=== PATIENT | female | born 1950 | race Caucasian/White ===

== ENCOUNTER 2018-04-08 08:06 | Inpatient (IN) | payer OTHER, MEDICAID ==
[2018-04-08] MEDS ORDERED: methylPREDNISolone SOD SUCC 125 MG/2 ML VIAL IVP ONE (09:14)
[2018-04-08] MEDS ORDERED: IPRATROPIUM/ALBUTEROL 3 ML DEYVIAL IH ONE (09:14)
--- NOTE | 2018-04-08 09:14 | EDPHY ---
H & P Stated Complaint: SOB/fatigue Time Seen by Provider: 04/08/18 08:35 HPI/ROS: CHIEF COMPLAINT: Shortness of breath HISTORY OF PRESENT ILLNESS: 68-year-old female presents with shortness of breath. Onset of shortness of breath and wheezing 2 days ago. Using albuterol inhaler with minimal relief. Associated with a moist cough. No known fever. Onset of diarrhea 2 days ago, now resolved. Nausea yesterday, result today. No prior history of asthma or COPD. Prior smoker. REVIEW OF SYSTEMS: complete 10 point ROS negative except at noted in the HPI - Personal History Current Tetanus/Diphtheria Vaccine: Unsure Tetanus Vaccine Date: last 5 years - Medical/Surgical History Hx Asthma: Yes Hx Chronic Respiratory Disease: No Hx Diabetes: No Hx Cardiac Disease: No Hx Renal Disease: Yes Hx Cirrhosis: No Hx Alcoholism: No Hx HIV/AIDS: No Hx Splenectomy or Spleen Trauma: No Other PMH: medical- psoriasis, depression, anxiety, panic attacks, ulcers. surgery- L humerous, B hip replaced, R nephrectomy, abd surgery, web marketing strategist surgery, c- section - Social History Smoking Status: Former smoker Alcohol Use: Sober Drug Use: None - Physical Exam Exam: General Appearance: Alert, pleasant Eyes: Pupils equal and round, no conjunctival pallor ENT, Mouth: Mucous membranes moist Neck: Normal inspection Respiratory: Diffuse expiratory wheezing Cardiovascular: Regular rate and rhythm Gastrointestinal: Abdomen is soft and nontender Neurological: A&O, nonfocal exam Skin: Warm and dry, no rash Extremities: Nontender, no pedal edema Psychiatric: Mood and affect normal Constitutional: Initial Vital Signs Temperature (C) 37.2 C 04/08/18 08:09 Heart Rate 95 04/08/18 08:09 Respiratory Rate 17 04/08/18 08:09 Blood Pressure 168/107 H 04/08/18 08:09 O2 Sat (%) 88 L 04/08/18 08:09 O2 Delivery Mode Humidified O2 (L/minute) 2 Allergies/Adverse Reactions: latex Allergy (Verified 01/21/16 17:53) morphine [Morphine] Allergy (Verified 01/21/16 17:53) Penicillins Allergy (Verified 01/21/16 17:53) Sulfa (Sulfonamide Antibiotics) Allergy (Verified 01/21/16 17:53) tetracycline [Tetracycline] Allergy (Verified 01/21/16 17:53) zinc Allergy (Verified 04/08/18 08:15) Home Medications: Medication Instructions Recorded Albuterol [Proventil Inhaler HFA 1 - 2 puffs IH Q4H PRN 04/08/18 (*)] Aspirin [Aspirin 325 mg (*)] 325 mg PO QID PRN 04/08/18 Ferrous Sulfate [Ferrous Sulf 325 325 mg PO DAILY 04/08/18 MG (*)] amLODIPine BESYLATE [Norvasc 10 mg 10 mg PO DAILY 04/08/18 (*)] guaiFENesin [Mucinex 600 MG (*)] 600 mg PO BID 04/08/18 traZODone [traZODONE 50MG (*)] 50 mg PO HS PRN 04/08/18 Medical Decision Making - Diagnostics Imaging Results: Chest X-Ray 04/08/18 08:35 Impression: No acute abnormality. Imaging: I viewed and interpreted images myself ED Course/Re-evaluation: This patient presents with diffuse bronchospasm and hypoxia. Oxygen by nasal cannula applied. Chest x-ray reveals no evidence of pneumonia. A DuoNeb and Solu-Medrol 125 mg IV given. 10am-feels much better after DuoNeb. Continues to have expiratory wheezing. Albuterol neb given. K+ 5.9, specimen hemolyzed. Chem 7 repeated and potassium is normal. 10:45am-continued expiratory wheezing after albuterol neb. Oxygen saturation 88 % on room air. Will admit for bronchospasm and hypoxia. The hospitalist service was consulted for admission. Differential Diagnosis: Differential diagnosis includes though it is not limited to pneumonia, pneumothorax, pulmonary embolism, aortic dissection, pericarditis, acute coronary syndrome. - Data Points Laboratory Results: Laboratory Results 04/08/18 09:40 04/08/18 10:35 Microbiology Results: MICROBIOLOGY 04/08/18 10:00 Blood Blood Culture - Preliminary 04/08/18 09:40 Blood Blood Culture - Preliminary Medications Given: Acetaminophen (Tylenol) 650 mg PO Q4HRS PRN PRN Reason: Pain, Mild/Fever, Can Take PO Stop: 10/05/18 11:53 Last Admin: 04/09/18 05:19 Dose: 650 mg Albuterol/Ipratropium (Duoneb) 3 ml IH QID [facility] Stop: 10/05/18 11:59 Last Admin: 04/10/18 16:27 Dose: 3 ml Amlodipine Besylate (Norvasc) 10 mg PO DAILY [facility] Stop: 10/06/18 08:59 Last Admin: 04/10/18 09:28 Dose: 10 mg Benzonatate (Tessalon Pearles) 200 mg PO TID [facility] Stop: 10/06/18 15:59 Last Admin: 04/10/18 17:22 Dose: Not Given Enoxaparin Sodium (Lovenox) 40 mg SC DAILY [facility] Stop: 10/06/18 08:59 Last Admin: 04/10/18 09:28 Dose: 40 mg Ferrous Sulfate (Ferrous Sulfate) 325 mg PO DAILY [facility] Stop: 10/06/18 08:59 Last Admin: 04/10/18 09:27 Dose: 325 mg Guaifenesin (Mucinex) 600 mg PO BID [facility] Stop: 10/05/18 20:59 Last Admin: 04/10/18 20:16 Dose: 600 mg Levofloxacin (Levaquin) 750 mg PO DAILY AT 10AM [facility] PRN Reason: Protocol Stop: 05/10/18 09:59 Last Admin: 04/10/18 12:30 Dose: 750 mg Lorazepam (Ativan) 0.5 mg PO Q6 PRN PRN Reason: Anxiety, Able to Take PO Stop: 10/07/18 09:36 Last Admin: 04/10/18 12:35 Dose: 0.5 mg Melatonin (Melatonin) 3 mg PO HS [facility] Stop: 10/05/18 20:59 Last Admin: 04/10/18 20:16 Dose: 3 mg Montelukast Sodium (Singulair) 10 mg PO DAILY@1800 [facility] Stop: 10/07/18 17:59 Last Admin: 04/10/18 18:28 Dose: 10 mg Prednisone (Prednisone) 60 mg PO DAILY [facility] Stop: 10/06/18 08:59 Last Admin: 04/10/18 09:28 Dose: 60 mg Fluticasone/Salmeterol (Advair) 1 puffs IH BID [facility] Stop: 10/06/18 12:59 Last Admin: 04/10/18 09:30 Dose: 1 puffs Throat Lozenges (Cepacol Lozenge) 1 ea PO PRN PRN PRN Reason: Cough, Mild Stop: 10/06/18 17:30 Last Admin: 04/10/18 16:27 Dose: 1 ea Discontinued Medications Albuterol (Proventil Neb) 3 ml IH EDNOW ONE Stop: 04/08/18 10:13 Last Admin: 04/08/18 10:25 Dose: 3 ml Albuterol (Proventil Neb) 3 ml IH EDNOW ONE Stop: 04/08/18 10:53 Last Admin: 04/08/18 11:04 Dose: 3 ml Albuterol/Ipratropium (Duoneb) 3 ml IH EDNOW ONE Stop: 04/08/18 09:15 Last Admin: 04/08/18 09:28 Dose: 3 ml Lorazepam (Ativan Injection) 0.5 mg IVP Q4HRS PRN PRN Reason: Anxiety Stop: 10/05/18 20:33 Last Admin: 04/10/18 07:41 Dose: 0.5 mg Methylprednisolone Sodium Succinate (Solu-Medrol) 125 mg IVP EDNOW ONE Stop: 04/08/18 09:15 Last Admin: 04/08/18 09:40 Dose: 125 mg Departure - Departure Disposition: [facility] Acute Clinical Impression: Chronic obstructive pulmonary disease with acute exacerbation Condition: Fair
[2018-04-08 09:51] LABS: PLATELET COUNT 384 10^3/uL (150-400)
[2018-04-08] MEDS ORDERED: ALBUTEROL 3 ML DEYVIAL IH ONE ×2 (10:12→10:52)
[2018-04-08] MEDS ORDERED: ACETAMINOPHEN 325 MG TAB PO PRN (11:54)
[2018-04-08] MEDS ORDERED: ALBUTEROL 3 ML DEYVIAL IH PRN (11:54)
[2018-04-08] MEDS ORDERED: ONDANSETRON DISINTEGRATING 4 MG TAB PO PRN (11:54)
[2018-04-08] MEDS ORDERED: ONDANSETRON 4 MG/2 ML VIAL IVP PRN (11:54)
[2018-04-08] MEDS ORDERED: ASPIRIN 325 MG TAB PO PRN (11:56)
[2018-04-08] MEDS ORDERED: traZODone 50 MG TAB PO PRN (11:56)
[2018-04-08] MEDS: IPRATROPIUM/ALBUTEROL 3 ML DEYVIAL IH SCH ×3 (13:41→20:40)
--- NOTE | 2018-04-08 15:06 | GHP ---
DATE OF ADMISSION: 04/08/2018 CHIEF COMPLAINT: Shortness of breath. HISTORY OF PRESENT ILLNESS: The patient is a 68-year-old female who presented to the emergency room with complaints of shortness of breath. She states that her onset of shortness of breath and wheezin g began approximately 2 days ago and has progressively become worse. She has not been exposed to any ill people that she is aware of. She has been using her albuterol inhaler at home with minimal reli ef. Her symptoms are associated with a moist cough. She has had no fever, no dyspnea, no chest pain , no headache. She did have diarrhea approximately 2 days ago; however, this has resolved as well. She has had no vomiting or other complaints at this time. REVIEW OF SYSTEMS: A comprehensive 10-point review of systems is negative other than noted in HPI. PAST MEDICAL HISTORY: Asthma, psoriasis, depression, anxiety, panic attacks, ulcers. PAST SURGICAL HISTORY: Bilateral hip replacement, left humerus surgery, right nephrectomy. SOCIAL HISTORY: The patient lives independently. She is a former smoker. She denies any alcohol or current tobacco use. ALLERGIES: Latex, morphine, penicillin, sulfa, tetracycline, zinc. PHYSICAL EXAM: GENERAL: The patient is alert, in no acute distress, oriented. VITAL SIGNS: Afebri le at 37, pulse is 93, respiratory rate 16, blood pressure is 132/78. She is saturating 91% on 1.5 L . HEENT: Normocephalic, atraumatic. Mucosal membranes are moist. Pupils equal, round, reactive to light. NECK: Supple. No lymphadenopathy or JVD noted. RESPIRATORY: Diffuse expiratory wheezing, decreased in the bases bilaterally. CARDIOVASCULAR: Regular rate and rhythm. GASTROINTESTINAL: A bdomen: Bowel sounds are positive. Soft and nontender. There is no guarding or rigidity noted. NE UROLOGICAL: The patient is alert and oriented. No focal abnormalities identified. SKIN: Warm and dry without rashes or lesions. EXTREMITIES: Within normal limits. There is no clubbing or cyanosis appreciated. MEDICATIONS PRIOR TO ADMISSION: Aspirin, Benadryl, Ativan, Celexa, Valium. FAMILY HISTORY: Reviewed and noncontributory. IMAGING: Chest x-ray shows no acute abnormality, personally reviewed and interpreted. LABORATORY DATA: CBC is benign, as well as a metabolic panel. ASSESSMENT AND PLAN: The patient is a 68-year-old female who presented to the emergency room with co mplaints of shortness of breath. She is being admitted to the hospital for: 1. Chronic obstructive pulmonary disease exacerbation with a history of asthma. She received steroi ds in the emergency room. She is significantly improved. She does continue to have some expiratory wheezing. I do not know any acute infectious process that is bacterial at this time. She will not r eceive any antibiotic therapy. Respiratory PCR panel is pending prior to this dictation and will be followed during her hospital course. 2. Acute hypoxemic respiratory failure. This is in the setting of chronic obstructive pulmonary dis ease exacerbation. She is requiring 1.5 L. She does not wear oxygen at baseline. We will continue DuoNebs and steroid therapy. 3. History of anxiety with depression. We will continue her previously prescribed home medications. DISPOSITION: The patient will be admitted under observation status. I anticipate that it will take less than 48 hours for her to be feeling well and discharged from the hospital. If not, her admissio n order can be adjusted as needed. /[id number]/MODL
[2018-04-08] MEDS: guaiFENesin 600 MG TAB.ER PO SCH (21:10)
[2018-04-08] MEDS: MELATONIN 3 MG TAB PO SCH (21:11)
[2018-04-08] MEDS: LORazepam 2 MG/ML INJ IVP PRN (21:11)
[2018-04-09] MEDS: LORazepam 2 MG/ML INJ IVP PRN ×5 (01:11→20:29)
[2018-04-09] MEDS: IPRATROPIUM/ALBUTEROL 3 ML DEYVIAL IH SCH ×4 (05:48→20:39)
[2018-04-09] MEDS: FERROUS SULFATE 325 MG TAB PO SCH (09:06)
[2018-04-09] MEDS: guaiFENesin 600 MG TAB.ER PO SCH ×2 (09:06→20:21)
[2018-04-09] MEDS: ENOXAPARIN 40 MG/0.4 ML SYR SC SCH (09:07)
[2018-04-09] MEDS: predniSONE 20 MG TAB PO SCH (09:07)
--- NOTE | 2018-04-09 11:25 | ASMTCMCOM ---
CM Note CM Note Notes: CM met with Pt and her son and reviewed chart for D/C planning. Pt is a 68 y/o female with an acute onset of SOB; she also c/o on-going dizziness and a recent bout with diarrhea. Per Pt and son, Pt lives alone with much attention/help/supervision from her son and daughter; they both live near her. Pt cooks her own meals. Her son has purchased a walk-in tub and equipped it with bars, but Pt "sink bathes" due to dizziness which she is worried could lead to falls. She has not fallen since she began using a walker. Pt's children keep the home clean and do her laundry. Pt has had PT in the home before and found it helpful. Pt and son given resource for low-income non-medical home services, [facility]. PT eval has been ordered. CM to follow. D/C Plan: TBD Date Signed: 04/09/2018 11:24 AM Electronically Signed By:Whitney Hernandez
--- NOTE | 2018-04-09 12:47 | HOSPPROG ---
Hospitalist Progress Note Assessment/Plan: DIAGNOSES: * acute hypoxemic respiratory failure * acute COPD/asthma exacerbation * persistent cough with free can't prolonged coughing spells aggravating dyspnea , sleeplessness, weakness * deconditioning * uncontrolled hypertension, appears resolved * hyperkalemia resolved; cause of this is uncertain particularly as she had been having diarrhea at home * acute diarrheal illness at home, resolved here PLANS: * Continue current bronchodilator nebs, prednisone * Add Advair * Continue Mucinex, add Tessalon Perles * Increase activity as she is able * Follow blood pressures SUBJECTIVE: Complains of ongoing cough, dyspnea, weakness OBJECTIVE Vitals reviewed: Blood pressure is notably better otherwise stable; respirations not rapid but do look mildly labored still at rest Skull Grinder, my review: Exam: alert oriented skin warm dry color ok resps mildly labored lungs diffuse rhonchorous breath sounds with overall diminished air movement heart regular abd soft nondistended nontender, bowel sounds present limbs warm, no edema iv site ok Lab data: Potassium now 4.3 good renal function I did review her x-ray images from yesterday agree that they do not show any infiltrate or heart failure Objective: Vital Signs Temp Pulse Resp BP Pulse Ox 36.7 C 109 H 19 124/85 H 93 04/09/18 07:26 04/09/18 12:00 04/09/18 12:00 04/09/18 12:00 04/09/18 12:00 04/08/18 04/09/18 04/10/18 06:59 06:59 06:59 Intake Total 700 Output Total 1 Balance 700 -1 ICD10 Worksheet Patient Problems: Problems Problem Status Onset Chronic obstructive pulmonary disease with acute exacerbation Acute
[2018-04-09] MEDS: FLUTICASONE/SALMETER 250/50MCG DISKUS IH SCH ×2 (14:29→20:45)
--- NOTE | 2018-04-09 16:15 | ASMTCMCOM ---
CM Note CM Note Notes: Spoke w/pt regarding homecare, PT recommends home PT. Pt is agreeable and would like referral sent to [facility]. DC date uncertain. DC Plan: Home Care Date Signed: 04/09/2018 04:09 PM Electronically Signed By:Tresa Schwab RN
[2018-04-09] MEDS: CEPACOL LOZENGE PO PRN (18:04)
[2018-04-09] MEDS: BENZONATATE 100 MG CAP PO SCH ×2 (19:16→20:22)
[2018-04-09] MEDS: MELATONIN 3 MG TAB PO SCH (20:21)
[2018-04-10] MEDS: LORazepam 2 MG/ML INJ IVP PRN ×2 (01:41→07:41)
[2018-04-10] MEDS: IPRATROPIUM/ALBUTEROL 3 ML DEYVIAL IH SCH ×4 (06:20→21:25)
[2018-04-10] MEDS: CEPACOL LOZENGE PO PRN ×2 (07:42→16:27)
[2018-04-10] MEDS: FERROUS SULFATE 325 MG TAB PO SCH (09:27)
[2018-04-10] MEDS: predniSONE 20 MG TAB PO SCH (09:28)
[2018-04-10] MEDS: ENOXAPARIN 40 MG/0.4 ML SYR SC SCH (09:28)
[2018-04-10] MEDS: guaiFENesin 600 MG TAB.ER PO SCH ×2 (09:28→20:16)
[2018-04-10] MEDS: BENZONATATE 100 MG CAP PO SCH ×3 (09:30→21:31)
[2018-04-10] MEDS: FLUTICASONE/SALMETER 250/50MCG DISKUS IH SCH ×2 (09:30→21:26)
--- NOTE | 2018-04-10 09:46 | HOSPPROG ---
Hospitalist Progress Note Assessment/Plan: 68-year-old woman with a history of tobacco use is admitted with increased shortness of breath.. She is diagnosed with acute COPD exacerbation and is currently on prednisone and DuoNeb nebs. Given ongoing cough and shortness of breath will add an antibiotic for possible pneumonia, I also suspect she does have a COPD and was with worsening cough this is indicated # acute COPD exacerbation with acute hypoxemic respiratory failure, minimal improvement over the past 2 days with steroids and duo nebs. Possible bronchitis symptomatically. * Add antibiotic * Continue prednisone and nebulizers * Add Singulair * Check magnesium and if low will give IV magnesium * Follow oxygen saturations. # anxiety: The significant component of anxiety worsening her cough, will continue Ativan however will change to p.o. # hypertension, continue to monitor and treat as needed may need IV antihypertensives. # history of hyperkalemia on admission will repeat # DVT prophylaxis on Lovenox Subjective: Patient new to me and chart reviewed,. Complains of persistent cough. Blood pressure tends to increase during her coughing fits. I suspect that is what's going on now. No chest pain Objective: Vital Signs Temp Pulse Resp BP Pulse Ox 36.1 C 140 H 18 130/75 H 89 L 04/10/18 07:15 04/10/18 07:15 04/10/18 07:15 04/10/18 09:31 04/10/18 07:15 04/09/18 04/10/18 04/11/18 05:59 05:59 05:59 Intake Total 700 700 Output Total 1 Balance 700 699 - Physical Exam Constitutional: chronically ill appearing, uncomfortable Eyes: PERRL, anicteric sclera, EOMI Ears, Nose, Mouth, Throat: moist mucous membranes, hearing normal Cardiovascular: tachycardia Respiratory: bronchial breath sounds, respiratory distress, No expiratory wheeze , No inspiratory crackles Gastrointestinal: normoactive bowel sounds, soft, non-tender abdomen Genitourinary: no bladder fullness Skin: warm Neurologic: AAOx3 Psychiatric: interacting appropriately ICD10 Worksheet Patient Problems: Problems Problem Status Onset Chronic obstructive pulmonary disease with acute exacerbation Acute
--- NOTE | 2018-04-10 11:34 | PDMN ---
Medical Necessity Medical necessity: [facility] [place] M100 COPD: 68 y/o w/ SOB, dx w/ COPD exacerbation w/ hx of asthma requiring oxygen to maintain sats >90%, steroids and nebs. Hypertensive 180s/100s. During course of hospitalization she has ongoing cough and SOB, IV antibx to be added for possible pneumonia. Change to IP status @ 1805 per MD "Due to ongoing significant dyspnea with impaired ambulation, hypoxemia, will need to change her to inpatient for ongoing care here in hospital."
[2018-04-10] MEDS: LORazepam 0.5 MG TAB PO PRN ×2 (12:35→21:46)
[2018-04-10] MEDS ORDERED: MONTELUKAST SODIUM 10 MG TAB PO SCH (18:00)
[2018-04-10] MEDS: MELATONIN 3 MG TAB PO SCH (20:16)
[2018-04-11] MEDS: CEPACOL LOZENGE PO PRN ×2 (01:38→06:00)
[2018-04-11] MEDS: IPRATROPIUM/ALBUTEROL 3 ML DEYVIAL IH SCH ×2 (06:23→10:40)
[2018-04-11] MEDS: LORazepam 0.5 MG TAB PO PRN (06:41)
[2018-04-11] MEDS ORDERED: MAGNESIUM SULF 2 GM/WATER 50 ML IV ONE (08:06)
[2018-04-11] MEDS: ENOXAPARIN 40 MG/0.4 ML SYR SC SCH (08:26)
[2018-04-11] MEDS: guaiFENesin 600 MG TAB.ER PO SCH (08:27)
[2018-04-11] MEDS: predniSONE 20 MG TAB PO SCH (08:27)
[2018-04-11] MEDS: BENZONATATE 100 MG CAP PO SCH (08:27)
[2018-04-11] MEDS: FERROUS SULFATE 325 MG TAB PO SCH (08:28)
[2018-04-11] MEDS: FLUTICASONE/SALMETER 250/50MCG DISKUS IH SCH (10:39)
[2018-04-11 11:11] VITALS: BP 153/82
--- NOTE | 2018-04-11 12:34 | ASMTLACE ---
[facility] Length of stay for Answers: 1 day current admission Acuity / Level of Answers: No Care: Did the patient have an inpatient admission? Comorbidities - select Answers: Other Notes: Asthma all that apply # of Emergency department Answers: 1-2 visits in the last 6 months Social determinants Answers: Mental health diagnosis (anxiety, depression, pers onality disorders, etc.) Score: 6 Date Signed: 04/11/2018 12:33 PM Electronically Signed By:Sudha Basurto RN
--- NOTE | 2018-04-11 13:42 | ASMTCMCOM ---
CM Note CM Note Notes: Reviewed chart, spoke with СВЕТЛАНА Gonzalez regarding discharge plan of care, pt's progress. Per Lisa, pt to discharge home today. Met with pt and pt's dghtr to discuss potential needs. Pt interested in homecare for housekeeping help and PT, but not agreeable to homebound requirements. Education provided on homecare services, pt requesting outpt physical therapy. Rx for therapy obtained from Dr. Rodriguez, given to pt. Pt to discharge home independently with family support. IM signed, placed in chart. Pt to follow up as directed. CM available for any further issues or concerns. Discharge Plan: Home independently with family support Date Signed: 04/11/2018 01:41 PM Electronically Signed By:Sudha Basurto RN
--- NOTE | 2018-04-11 13:53 | ASDISCHSUM ---
Discharge Information Plan Status:Home with No Needs Medically Cleared to Leave:04/11/2018 Discharge Date:04/11/2018 12:38 PM CM D/C Disposition:Home, Routine, Self-Care ADT D/C Disposition:[id number] Projected Discharge Date:04/11/2018 11:00 AM Transportation at D/C:Family Discharge Delay Reason: Follow-Up Date:04/11/2018 11:00 AM Discharge Slot:2 - 12:01 pm - 18:00 pm Final Diagnosis:Shortness of breath, acute COPD, anxiety, HTN Placement Information Referral Type:*Home Health Care Services Referral ID:[id number] Provider Name: Address 1: Phone Number: Address 2: Fax Number: City: Selection Factors: State: Patient Contact Information Contact Name:MICHAELA Relationship:Daughter Address: Work Phone: City: Alternate Phone: State/[employer] Code: Email: Financial Information Financial Class:Medicare Primary Plan Desc:MEDICARE OUTPATIENT Primary Plan Number:[id number] Secondary Plan Desc:MEDICAID [place] Secondary Plan Number:[id number] Assessment Information LACE LACE Length of stay for Answers: 1 day current admission Acuity / Level of Answers: No Care: Did the patient have an inpatient admission? Comorbidities - select Answers: Other Notes: Asthma all that apply # of Emergency department Answers: 1-2 visits in the last 6 months Social determinants Answers: Mental health diagnosis (anxiety, depression, pers onality disorders, etc.) Score: 6 Date Signed: 04/11/2018 12:33 PM Electronically Signed By:Sudha Basurto RN [facility] CM Progress Note CM Note CM Note Notes: CM met with Pt and her son and reviewed chart for D/C planning. Pt is a 68 y/o female with an acute onset of SOB; she also c/o on-going dizziness and a recent bout with diarrhea. Per Pt and son, Pt lives alone with much attention/help/supervision from her son and daughter; they both live near her. Pt cooks her own meals. Her son has purchased a walk-in tub and equipped it with bars, but Pt "sink bathes" due to dizziness which she is worried could lead to falls. She has not fallen since she began using a walker. Pt's children keep the home clean and do her laundry. Pt has had PT in the home before and found it helpful. Pt and son given resource for low-income non-medical home services, [facility]. PT eval has been ordered. CM to follow. D/C Plan: TBD Date Signed: 04/09/2018 11:24 AM Electronically Signed By:Whitney Hernandez [facility] CM Progress Note CM Note CM Note Notes: Spoke w/pt regarding homecare, PT recommends home PT. Pt is agreeable and would like referral sent to [facility]. DC date uncertain. DC Plan: Home Care Date Signed: 04/09/2018 04:09 PM Electronically Signed By:Tresa Schwab RN [facility] CM Progress Note CM Note CM Note Notes: Reviewed chart, spoke with СВЕТЛАНА Gonzalez regarding discharge plan of care, pt's progress. Per Lisa, pt to discharge home today. Met with pt and pt's dghtr to discuss potential needs. Pt interested in homecare for housekeeping help and PT, but not agreeable to homebound requirements. Education provided on homecare services, pt requesting outpt physical therapy. Rx for therapy obtained from Dr. Rodriguez, given to pt. Pt to discharge home independently with family support. IM signed, placed in chart. Pt to follow up as directed. CM available for any further issues or concerns. Discharge Plan: Home independently with family support Date Signed: 04/11/2018 01:41 PM Electronically Signed By:Sudha Basurto RN Intervention Information Intervention Type:*WILLIS-Signed Date of Service:04/09/2018 11:14 AM Patient Type:Observation Staff Member:Paula Godinez Hours: Discipline: Severity: Comment: Intervention Type:*IM-Signed Date of Service:04/11/2018 12:33 PM Patient Type:Inpatient Staff Member:СВЕТЛАНА Basurto Taylor Hours: Discipline: Severity: Comment:
--- NOTE | 2018-04-11 14:58 | GDS ---
DIAGNOSES: 1. Acute asthma/chronic obstructive pulmonary disease exacerbation. 2. Anxiety. 3. Hypertension. HOSPITAL COURSE: The patient is a 68-year-old. She lives alone in her own home and complains of acu te increased shortness of breath. She had a history of asthma and tobacco use and responded slowly t o steroids and nebulizers. Given her increased cough and sputum production, she was started on Levaq uin and will complete a 7-day course. At the time of discharge, she was saturating just above 90% on room air and will be discharged home. CONDITION ON DISCHARGE: Good. DISCHARGE MEDICATIONS: Please see discharge medication form. FOLLOWUP: She will follow up with her primary care provider within a week. Certainly return should she develop any significant increasing dyspnea on exertion or weakness. Total time spent with patient on day of discharge and coordination of care is 35 minutes. /[id number]/MODL
== END 2018-04-11 12:38 | disposition home health service (06) | DRG 192 ==
LOC: F3E 11:47 → OBSVTOIN 04-09 18:05
PROVIDERS: ADMIT Internal Medicine; ATTEND Internal Medicine
DX: J44.1 Chronic obstructive pulmonary disease with (acute) exacerbation (principal); F41.9 Anxiety disorder, unspecified; I10 Essential (primary) hypertension; Z87.891 Personal history of nicotine dependence
CPT/HCPCS: 96374; 97112-GP; 97116-GP; 97162-GP; G0378; G8978-GP-CI; G8978-GP-CJ; G8979-GP-CI; G8980-GP-CI; J1650; J2060; J2930; J3475; J7512; J7613

== ENCOUNTER 2019-01-17 10:04 | Emergency (ER) | payer OTHER, MEDICAID | END 2019-01-17 15:45 | disposition home or self-care (01) ==